=== PATIENT | female | born 1960 | race Caucasian/White ===

== ENCOUNTER 2021-05-12 10:11 | Observation (INO) | payer BC ==
--- NOTE | 2021-05-12 10:39 | EDM.PDOC ---
ED HPI GENERAL MEDICAL PROBLEM - General Stated Complaint: HERNIA Time Seen by Provider: 05/12/21 10:25 Source of Information: Reports: Patient History Limitations: Reports: No Limitations - History of Present Illness INITIAL COMMENTS - FREE TEXT/NARRATIVE: This 60 yo female patient reports to the ED from the [facility] due to right sided abdominal pain. The patient reports her abdominal pain started this morning and had continued until she presented to the ED. The patient does have a history of a ventral hernia repair. The patient reports she had similar symptoms over the past weekend. The patient reports she had eaten popcorn prior to her earlier episode and had eaten sunflower seeds yesterday. Onset: Today Duration: Constant, Improving Location: Reports: Abdomen (right sided) Quality: Reports: Ache, Sharp Severity: Moderate Improves with: Reports: None Worsens with: Reports: None Context: Reports: Other Associated Symptoms: Reports: No Other Symptoms Abdomen Pain Score (Numeric/FACES): 4 - Related Data Allergies Allergy/AdvReac Type Severity Reaction Status Date / Time No Known Allergies Allergy Verified 05/12/21 10:11 Home Meds: Home Meds Citalopram [Citalopram HBr] 20 mg PO DAILY 05/12/21 [History] Levothyroxine [Synthroid] 137 mcg PO ACBREAKFAST 05/12/21 [History] amLODIPine Besylate [Amlodipine Besylate] 5 mg PO DAILY 05/12/21 [History] buPROPion HCL [Wellbutrin Xl] 300 mg PO DAILY 05/12/21 [History] ED ROS GENERAL - Review of Systems Review Of Systems: Comprehensive ROS is negative, except as noted in HPI. ED EXAM, GI/ABD - Physical Exam Exam: See Below Exam Limited By: No Limitations General Appearance: Alert, WD/WN, No Apparent Distress Eyes: Bilateral: Normal Appearance, EOMI Ears: Normal External Exam, Normal Canal, Hearing Grossly Normal, Normal TMs Nose: Normal Inspection, Normal Mucosa, No Blood Throat/Mouth: Normal Inspection, Normal Lips, Normal Teeth, Normal Gums, Normal Oropharynx, Normal Voice, No Airway Compromise Head: Atraumatic, Normocephalic Cardiovascular: Normal Peripheral Pulses, Regular Rate, Rhythm, No Edema, No Gallop, No JVD, No Murmur, No Rub GI/Abdominal Exam: Soft, No Organomegaly, No Distention, No Abnormal Bruit, No Mass, Pelvis Stable, Tender (Right mid abdominal tenderness to palpation), Other (Hypoactive bowel sounds) (Female) Exam: Deferred Rectal (Female) Exam: Deferred Back Exam: Normal Inspection, Full Range of Motion, NT Extremities: Normal Inspection, Normal Range of Motion, Non-Tender, Normal Capillary Refill, No Pedal Edema Neurological: Alert, Oriented, CN II-XII Intact, Normal Cognition, Normal Gait, Normal Reflexes, No Motor/Sensory Deficits Psychiatric: Normal Affect, Normal Mood Skin Exam: Warm, Dry, Intact, Normal Color, No Rash Lymphatic: No Adenopathy Course - Vital Signs Last Recorded V/S: Last Vital Signs Temp 97.1 F 05/12/21 10:16 Pulse 79 05/12/21 10:16 Resp 20 05/12/21 10:16 BP 156/83 H 05/12/21 10:16 Pulse Ox 95 05/12/21 10:16 - Orders/Labs/Meds Orders: Active Orders 24 hr Category Date Time Status Admission Diagnosis [ADT] Urgent ADT 05/12/21 16:03 Ordered Admission Status [Patient Status] [ADT] Routine ADT 05/12/21 16:03 Ordered CORONAVIRUS COVID-19 NIRANJAN [MOLEC] Urgent Lab 05/12/21 16:08 Ordered CULTURE BLOOD [BC] Stat Lab 05/12/21 10:05 Ordered Labs: Laboratory Tests 05/12/21 05/12/21 05/12/21 Range/Units 10:20 10:20 10:20 WBC 7.0 (5.0-10.0) 10^3/uL RBC 5.09 (4.2-5.4) 10^6/uL Hgb 14.2 (12.0-16.0) g/dL Hct 44.6 (37.0-47.0) % MCV 87.6 (80-100) fL MCH 27.9 (27.0-34.0) pg MCHC 31.8 L (33.0-35.0) g/dL Plt Count 204 (150-450) 10^3/uL Neut % (Auto) 79.3 H (42.2-75.2) % Lymph % (Auto) 13.4 L (20.5-50.1) % [place] % (Auto) 6.6 (2-8) % Eos % (Auto) 0.4 L (1.0-3.0) % Baso % (Auto) 0.3 (0.0-1.0) % Sodium 140 (136-145) mmol/L Potassium 4.1 (3.5-5.1) mmol/L Chloride 101 (98-107) mmol/L Carbon Dioxide 29 (21-32) mmol/L Anion Gap 14.1 H (7-13) mEq/L BUN 13 (7-18) mg/dL Creatinine 0.76 (0.55-1.02) mg/dL Est Cr Clr Drug Dosing 67.97 mL/min Estimated GFR (MDRD) > 60 BUN/Creatinine Ratio 17.1 (No establ ref range) Glucose 105 H (70-99) mg/dL Lactic Acid 0.6 (0.4-2.0) mmol/L Calcium 9.0 (8.5-10.1) mg/dL Total Bilirubin 0.5 (0.2-1.0) mg/dL AST 18 (15-37) U/L ALT 25 (14-59) U/L Alkaline Phosphatase 108 (46-116) U/L Total Protein 7.4 (6.4-8.2) g/dL Albumin 3.6 (3.4-5.0) g/dL Globulin 3.8 Albumin/Globulin Ratio 0.9 Amylase 52 (25-115) U/L Lipase 39 L (73-393) U/L Urine Color (YELLOW) Urine Appearance (CLEAR) Urine pH (5.0-9.0) Ur Specific [place] (1.005-1.030) Urine Protein (NEGATIVE) Urine Glucose (UA) (NEGATIVE) Urine Ketones (NEGATIVE) Urine Occult Blood (NEGATIVE) Urine Nitrite (NEGATIVE) Urine Bilirubin (NEGATIVE) Urine Urobilinogen (0.2-1.0) mg/dL Ur Leukocyte Esterase (NEGATIVE) 05/12/21 Range/Units 11:44 WBC (5.0-10.0) 10^3/uL RBC (4.2-5.4) 10^6/uL Hgb (12.0-16.0) g/dL Hct (37.0-47.0) % MCV (80-100) fL MCH (27.0-34.0) pg MCHC (33.0-35.0) g/dL Plt Count (150-450) 10^3/uL Neut % (Auto) (42.2-75.2) % Lymph % (Auto) (20.5-50.1) % [place] % (Auto) (2-8) % Eos % (Auto) (1.0-3.0) % Baso % (Auto) (0.0-1.0) % Sodium (136-145) mmol/L Potassium (3.5-5.1) mmol/L Chloride (98-107) mmol/L Carbon Dioxide (21-32) mmol/L Anion Gap (7-13) mEq/L BUN (7-18) mg/dL Creatinine (0.55-1.02) mg/dL Est Cr Clr Drug Dosing mL/min Estimated GFR (MDRD) BUN/Creatinine Ratio (No establ ref range) Glucose (70-99) mg/dL Lactic Acid (0.4-2.0) mmol/L Calcium (8.5-10.1) mg/dL Total Bilirubin (0.2-1.0) mg/dL AST (15-37) U/L ALT (14-59) U/L Alkaline Phosphatase (46-116) U/L Total Protein (6.4-8.2) g/dL Albumin (3.4-5.0) g/dL Globulin Albumin/Globulin Ratio Amylase (25-115) U/L Lipase (73-393) U/L Urine Color Yellow (YELLOW) Urine Appearance Clear (CLEAR) Urine pH 6.5 (5.0-9.0) Ur Specific [place] 1.025 (1.005-1.030) Urine Protein Negative (NEGATIVE) Urine Glucose (UA) Negative (NEGATIVE) Urine Ketones 15 H (NEGATIVE) Urine Occult Blood Negative (NEGATIVE) Urine Nitrite Negative (NEGATIVE) Urine Bilirubin Negative (NEGATIVE) Urine Urobilinogen 0.2 (0.2-1.0) mg/dL Ur Leukocyte Esterase Negative (NEGATIVE) Meds: Medications Discontinued Medications Generic Name Dose Route Start Last Admin Trade Name Freq PRN Reason Stop Dose Admin Iopamidol 100 ml 05/12/21 11:13 Iopamidol 612 Mg/Ml 100 Ml Bottle IVPUSH 05/12/21 11:14 ONETIME ONE Ondansetron HCl 4 mg 05/12/21 12:25 05/12/21 12:30 Ondansetron 4 Mg/2 Ml Sdv IVPUSH 05/12/21 12:26 4 mg ONETIME ONE Administration - Re-Assessments/Exams Free Text/Narrative Re-Assessment/Exam: 05/12/21 11:17 The patient was advised of her lab results and was informed that we would get a CT of her abdomen/pelvis to look for other sources of her symptoms. The patient reports her pain is currently gone. 05/12/21 12:44 A call was placed to [facility] at 1230, [facility] advised that they would talk to surgery (Dr. Esteban), evaluate the bed situation and call us back with a decision. 05/12/21 16:13 After calling [facility], [facility], [facility], [facility], [facility] and [place]. The surgeon in [place] reviewed the case and believes the patient would benefit from a larger facility. Since there is no larger facility available, the surgeon advised to admit the patient to [place] and transfer (if needed) to a larger facility. Departure - Departure Time of Disposition: 16:25 Disposition: Refer to Observation Condition: Fair Clinical Impression: Incarcerated hernia - Discharge Information *PRESCRIPTION DRUG MONITORING PROGRAM REVIEWED*: Not Applicable *COPY OF PRESCRIPTION DRUG MONITORING REPORT IN PATIENT JAZMIN: Not Applicable Care Plan Goals: Discussed the patient's history, examination, lab and CT results with Dr. Michele. Dr. Michele accepted the patient for continued evaluation and management. The patient is on a transfer list at [facility] and [facility]. Sepsis Event Note (ED) - Focused Exam Vital Signs: Vital Signs Temp Pulse Resp BP Pulse Ox 05/12/21 10:16 97.1 F 79 20 156/83 H 95 - My Orders Last 24 Hours: My Active Orders 05/12/21 10:05 CULTURE BLOOD [BC] Stat 05/12/21 16:03 Admission Diagnosis [ADT] Urgent Admission Status [Patient Status] [ADT] Routine 05/12/21 16:08 CORONAVIRUS COVID-19 NIRANJAN [MOLEC] Urgent - Assessment/Plan Last 24 Hours: My Active Orders 05/12/21 10:05 CULTURE BLOOD [BC] Stat 05/12/21 16:03 Admission Diagnosis [ADT] Urgent Admission Status [Patient Status] [ADT] Routine 05/12/21 16:08 CORONAVIRUS COVID-19 NIRANJAN [MOLEC] Urgent
[2021-05-12 11:03] LABS: ANION GAP 14.1 mEq/L (7-13); CHLORIDE,CL 101 mmol/L (98-107); SODIUM,NA 140 mmol/L (136-145)
[2021-05-12] MEDS ORDERED: Iopamidol 612 MG/ML 100 ML Bottle IVPUSH ONE (11:13)
--- NOTE | 2021-05-12 11:56 | CT ---
EXAMINATION: Abdomen Pelvis w Cont SEX: Female AGE: 60 years CLINICAL HISTORY: 60-year-old 263 pound female with history of cholecystectomy, ventral hernia "repair", breast reduction surgery, and now right abdominal pain associated with eating "popcorn and sunflower seeds". No comparison exams immediately available at this institution. Scan technique: Volume acquisition of data from the abdomen and pelvis obtained without oral contrast but during the intravenous administration 100 cc nonionic Isovue contrast at 3 cc/s via injector while patient was lying supine on the Siemens multislice scanner [place], [place]. All data archived in the PACS system for storage, reformatting axial/sagittal/coronal planes and study. Interpretation: Abnormal. 1. Large (8.5 cm) midline defect epigastrium with huge hernia (several herniated loops of small bowel extending into the subcutaneous tissues). 2. Note: Another separate smaller (2 cm) midline defect with *incarcerated "knuckle" of small bowel identified on sagittal image #44, axial image #45, and coronal image #13. which may be responsible for patient's symptomatology. 3. No current signs of mechanical small bowel obstruction. 4. No abdominal or pelvic soft tissue mass lesion, mesenteric or retroperitoneal lymphadenopathy, diverticula, inflammatory "dirty" peritoneal fat, ascites or free intraperitoneal air. 5. Small hiatus hernia (surgical clips in the lower mediastinum at the GE junction) and apparent gastric bypass surgery. 6. Cholecystectomy (surgical clips RUQ). Liver, spleen, pancreas adrenal glands and kidneys anatomically correct. Normal midline uterus. Symmetrically distended unenhanced urinary bladder unremarkable. 7. Normal caliber aortoiliac vessels. No aneurysms. Hypertrophic spondylosis lumbar spine. 8. Lung bases clear. Normal cardiac silhouette. No pericardial or pleural effusions. CONCLUSION: Evidence of multiple abdominal surgeries. Ventral wall hernias (x2) probably significant clinically. No sign of abdominal malignancy, mechanical bowel obstruction or acute peritonitis.
[2021-05-12] MEDS ORDERED: Ondansetron 4 MG/2 ML SDV IVPUSH ONE (12:25)
[2021-05-12] MEDS ORDERED: Acetaminophen 325 MG Tab PO PRN (16:51)
[2021-05-12] MEDS ORDERED: Ondansetron 4 MG Tab.DIS PO PRN (16:51)
--- NOTE | 2021-05-12 17:04 | PCM.HP ---
H&P History of Present Illness - General Date of Service: 05/12/21 Admit Problem/Dx: Admission Diagnosis/Problem Admission Diagnosis/Problem Incarcerated hernia - History of Present Illness Initial Comments - Free Text/Narative: Opal is a 60-year-old woman who presented to the ER today with 24-hour history of worsening abdominal discomfort. She states that she has had intermittent pain, but also waves of severe nausea, and a "fullness". She has a significant past history of gastric bypass surgery, and developed a ventral hernia which also needed surgical repair. She also reports that she has had a history of cholecystectomy. Upon her initial presentation to the ED this morning, laboratory work was normal, however due to the fact that she has this existing surgical history, ER provider ordered a CT scan of the abdomen and pelvis. They did find a small pocket of small bowel that appears to be incarcerated, but is not showing any signs of stranding or necrosis. ED provider attempted to find surgical placement for her, but because of the COVID-19 pandemic, there are no available beds in the surrounding area. He was able to get tentative acceptance at [facility] in [place], [place]. They do not currently have a bed, but she is placed on high priority on their waiting list. Decision was made to admit her here for observation, pain control, and IV fluid maintenance pending transfer for surgery in [place]. As I approach, she states that she is pain-free, actually seems to be more worried about how her mother will react to her having surgery. She relates to me that her father 5 months ago, and that her brother yesterday after a long extended illness. Abdomen Pain Score (Numeric/FACES): 4 - Related Data Allergies/Adverse Reactions: Allergies Allergy/AdvReac Type Severity Reaction Status Date / Time No Known Allergies Allergy Verified 05/12/21 16:52 Home Medications: Home Meds Citalopram [Citalopram HBr] 20 mg PO DAILY 05/12/21 [History] Levothyroxine [Synthroid] 137 mcg PO ACBREAKFAST 05/12/21 [History] amLODIPine Besylate [Amlodipine Besylate] 5 mg PO DAILY 05/12/21 [History] buPROPion HCL [Wellbutrin Xl] 300 mg PO DAILY 05/12/21 [History] Past Medical History Cardiovascular History: Reports: Hypertension Gastrointestinal History: Reports: Other (See Below) (Cholecystectomy, gastric bypass surgery, repair of ventral hernia) Psychiatric History: Reports: Depression (Has a history of recurrent major depression, currently on 2 medications for that. Her father 5 months ago, brother yesterday after a long illness. She is dealing with significant grief because of this, exacerbating her pre-existing depression) Endocrine/Metabolic History: Reports: Hypothyroidism - Past Surgical History GI Surgical History: Reports: Hernia, Abdominal, Hernia Repair/Other Social & Family History - Family History Family Medical History: No Pertinent Family History - Tobacco Use Tobacco Use Status *Q: Unknown Ever Used Tobacco - Caffeine Use Caffeine Use: Reports: Coffee - Recreational Drug Use Recreational Drug Use: No H&P Review of Systems - Review of Systems: Review Of Systems: See Below General: Reports: Other (reports 40 pound intentional weight loss over past several months). Denies: Fever, Chills, Night Sweats HEENT: Denies: Headaches, Hearing Changes, Vertigo, Visual Changes Pulmonary: Denies: Shortness of Breath, Cough Cardiovascular: Denies: Chest Pain, Palpitations Gastrointestinal: Reports: Other (see HPI) Genitourinary: Denies: Dysuria, Hematuria Musculoskeletal: Denies: Joint Pain, Muscle Pain Skin: Denies: Bruising, Rash, Lesions Psychiatric: Reports: Other (No increased depression or anxiety symptoms, grief from loss of father and brother) Neurological: Denies: Confusion, Syncope, Trouble Speaking, Difficulty Walking Hematologic/Lymphatic: Denies: Easy Bleeding, Easy Bruising Exam - Exam Exam: See Below - Vital Signs Vital Signs: Last Vital Signs Temp 97.1 F 05/12/21 10:16 Pulse 79 05/12/21 10:16 Resp 20 05/12/21 10:16 BP 156/83 H 05/12/21 10:16 Pulse Ox 95 05/12/21 10:16 Weight: 258 lb - Exam Physical Exam Comments:: General: Maksim is a 60-year-old woman in no acute distress Oropharynx is clear, mucous membranes are moist Neck: Supple, no lymphadenopathy Heart: Regular rate and rhythm, no murmurs Lungs: Clear to auscultation throughout Abdomen: Soft, nontender to palpation, noticeable ventral defect is noted. It is difficult to tell whether this is a hernia or diastases. Normal bowel sounds Extremities: she moves all of her extremities well Neurological: Cranial nerves II through XII grossly intact - Patient Data Lab Results Last 24 hrs: Laboratory Results - last 24 hr 05/12/21 05/12/21 05/12/21 Range/Units 10:20 10:20 10:20 WBC 7.0 (5.0-10.0) 10^3/uL RBC 5.09 (4.2-5.4) 10^6/uL Hgb 14.2 (12.0-16.0) g/dL Hct 44.6 (37.0-47.0) % MCV 87.6 (80-100) fL MCH 27.9 (27.0-34.0) pg MCHC 31.8 L (33.0-35.0) g/dL Plt Count 204 (150-450) 10^3/uL Neut % (Auto) 79.3 H (42.2-75.2) % Lymph % (Auto) 13.4 L (20.5-50.1) % [place] % (Auto) 6.6 (2-8) % Eos % (Auto) 0.4 L (1.0-3.0) % Baso % (Auto) 0.3 (0.0-1.0) % Sodium 140 (136-145) mmol/L Potassium 4.1 (3.5-5.1) mmol/L Chloride 101 (98-107) mmol/L Carbon Dioxide 29 (21-32) mmol/L Anion Gap 14.1 H (7-13) mEq/L BUN 13 (7-18) mg/dL Creatinine 0.76 (0.55-1.02) mg/dL Est Cr Clr Drug Dosing 67.97 mL/min Estimated GFR (MDRD) > 60 BUN/Creatinine Ratio 17.1 (No establ ref range) Glucose 105 H (70-99) mg/dL Lactic Acid 0.6 (0.4-2.0) mmol/L Calcium 9.0 (8.5-10.1) mg/dL Total Bilirubin 0.5 (0.2-1.0) mg/dL AST 18 (15-37) U/L ALT 25 (14-59) U/L Alkaline Phosphatase 108 (46-116) U/L Total Protein 7.4 (6.4-8.2) g/dL Albumin 3.6 (3.4-5.0) g/dL Globulin 3.8 Albumin/Globulin Ratio 0.9 Amylase 52 (25-115) U/L Lipase 39 L (73-393) U/L Urine Color (YELLOW) Urine Appearance (CLEAR) Urine pH (5.0-9.0) Ur Specific [place] (1.005-1.030) Urine Protein (NEGATIVE) Urine Glucose (UA) (NEGATIVE) Urine Ketones (NEGATIVE) Urine Occult Blood (NEGATIVE) Urine Nitrite (NEGATIVE) Urine Bilirubin (NEGATIVE) Urine Urobilinogen (0.2-1.0) mg/dL Ur Leukocyte Esterase (NEGATIVE) SARS CoV-2 RNA Rapid NIRANJAN (NEGATIVE) 05/12/21 05/12/21 Range/Units 11:44 16:08 WBC (5.0-10.0) 10^3/uL RBC (4.2-5.4) 10^6/uL Hgb (12.0-16.0) g/dL Hct (37.0-47.0) % MCV (80-100) fL MCH (27.0-34.0) pg MCHC (33.0-35.0) g/dL Plt Count (150-450) 10^3/uL Neut % (Auto) (42.2-75.2) % Lymph % (Auto) (20.5-50.1) % [place] % (Auto) (2-8) % Eos % (Auto) (1.0-3.0) % Baso % (Auto) (0.0-1.0) % Sodium (136-145) mmol/L Potassium (3.5-5.1) mmol/L Chloride (98-107) mmol/L Carbon Dioxide (21-32) mmol/L Anion Gap (7-13) mEq/L BUN (7-18) mg/dL Creatinine (0.55-1.02) mg/dL Est Cr Clr Drug Dosing mL/min Estimated GFR (MDRD) BUN/Creatinine Ratio (No establ ref range) Glucose (70-99) mg/dL Lactic Acid (0.4-2.0) mmol/L Calcium (8.5-10.1) mg/dL Total Bilirubin (0.2-1.0) mg/dL AST (15-37) U/L ALT (14-59) U/L Alkaline Phosphatase (46-116) U/L Total Protein (6.4-8.2) g/dL Albumin (3.4-5.0) g/dL Globulin Albumin/Globulin Ratio Amylase (25-115) U/L Lipase (73-393) U/L Urine Color Yellow (YELLOW) Urine Appearance Clear (CLEAR) Urine pH 6.5 (5.0-9.0) Ur Specific [place] 1.025 (1.005-1.030) Urine Protein Negative (NEGATIVE) Urine Glucose (UA) Negative (NEGATIVE) Urine Ketones 15 H (NEGATIVE) Urine Occult Blood Negative (NEGATIVE) Urine Nitrite Negative (NEGATIVE) Urine Bilirubin Negative (NEGATIVE) Urine Urobilinogen 0.2 (0.2-1.0) mg/dL Ur Leukocyte Esterase Negative (NEGATIVE) SARS CoV-2 RNA Rapid NIRANJAN Negative (NEGATIVE) Result Diagrams: 05/12/21 10:20 05/12/21 10:20 *Q Meaningful Use (ADM) - VTE Risk Assess *Q Each Risk Factor Represents 2 Points: Age 60 - 74 Years Total Score 2 Point Risk Factors: 2 - Problem List (1) Hypothyroidism SNOMED Code(s): 23427660 ICD Code: E03.9 - HYPOTHYROIDISM, UNSPECIFIED Status: Chronic Current Visit: Yes Qualifiers: Hypothyroidism type: unspecified Qualified Code(s): E03.9 - Hypothyroidism, unspecified (2) Major depressive disorder, recurrent SNOMED Code(s): 80417356 ICD Code: F33.9 - MAJOR DEPRESSIVE DISORDER, RECURRENT, UNSPECIFIED Status: Chronic Current Visit: Yes Qualifiers: Active/Remission status: currently active Psychotic features: without psychotic features (3) Incarcerated hernia SNOMED Code(s): 96591014 ICD Code: K46.0 - UNSP ABDOMINAL HERNIA WITH OBSTRUCTION, WITHOUT GANGRENE Status: Acute Priority: High Current Visit: Yes Problem List Initiated/Reviewed/Updated: Yes Orders Last 24hrs: Active Orders 24 hr Category Date Time Status Admission Diagnosis [ADT] Urgent ADT 05/12/21 16:03 Ordered Admission Status [Patient Status] [ADT] Routine ADT 05/12/21 16:03 Active Antiembolic Devices [RC] PER UNIT ROUTINE Care 05/12/21 16:54 Ordered Oxygen Therapy [RC] PRN Care 05/12/21 16:51 Ordered Up ad Dianne [RC] ASDIRECTED Care 05/12/21 16:51 Ordered VTE/DVT Education [RC] PER UNIT ROUTINE Care 05/12/21 16:51 Ordered Vital Signs [RC] Q4H Care 05/12/21 16:51 Ordered Nothing per Oral Now Diet [DIET] Diet 05/12/21 Dinner Ordered CBC WITH AUTO DIFF [HEME] AM Lab 05/13/21 05:11 Ordered COMPREHENSIVE METABOLIC PN,CMP [CHEM] AM Lab 05/13/21 05:11 Ordered CULTURE BLOOD [BC] Stat Lab 05/12/21 10:20 Received LACTIC ACID [CHEM] AM Lab 05/13/21 05:11 Ordered MAGNESIUM [CHEM] AM Lab 05/13/21 05:11 Ordered Acetaminophen [TylenoL] Med 05/12/21 16:51 Ordered 650 mg PO Q4H PRN Citalopram [Celexa] Med 05/13/21 09:00 Ordered 20 mg PO DAILY Lactated Ringers @ 125 MLS/HR(1000ml) Med 05/12/21 17:00 Ordered Lactated Ringers [Ringers, Lactated] 1,000 ml IV ASDIRECTED Levothyroxine [Synthroid] Med 05/13/21 06:00 Ordered 137 mcg PO ACBREAKFAST Ondansetron [Zofran ODT] Med 05/12/21 16:51 Ordered 4 mg PO Q6H PRN amLODIPine [Norvasc] Med 05/13/21 09:00 Ordered 5 mg PO DAILY buPROPion HCL [Wellbutrin Xl] Med 05/13/21 09:00 Ordered 300 mg PO DAILY Sequential Compression Device [OM.PC] Per Unit Routine Oth 05/12/21 16:52 Ordered Resuscitation Status Routine Resus Stat 05/12/21 16:51 Ordered Medication Orders Acetaminophen (Acetaminophen 325 Mg Tab) 650 mg PO Q4H PRN PRN Reason: Pain (Mild 1-3)/fever Amlodipine Besylate (Amlodipine 5 Mg Tab) 5 mg PO DAILY TOMY Citalopram Hydrobromide (Citalopram 20 Mg Tab) 20 mg PO DAILY TOMY Lactated Ringer's (Ringers, Lactated) 1,000 mls @ 125 mls/hr IV ASDIRECTED TOMY Levothyroxine Sodium (Levothyroxine 100 Mcg Tab) 137 mcg PO ACBREAKFAST TOMY Non-Formulary Medication (Bupropion Hcl [Wellbutrin Xl]) 300 mg PO DAILY TOMY Ondansetron HCl (Ondansetron 4 Mg Tab.Dis) 4 mg PO Q6H PRN PRN Reason: nausea, able to take PO Assessment/Plan Comment:: Assessment: 1. 60-year-old woman with incarcerated hernia of the anterior abdomen, with no laboratory or clinical signs of necrosis or infection 2. Major depressive disorder with recurrent episode 3. Hypothyroidism 4. Obesity Plan: 1. She has been tentatively accepted by [facility] in [place], however, they do not have an available bed at this time. Because of the COVID-19 pandemic, they have been stressed for beds. ER provider attempted to find placement for her at 7 other surrounding facilities with no success. She will be admitted for observation here, until a bed opens up where she can be transferred to [place] for anticipated surgery. 2. We will keep her n.p.o., as we do not know when they will have availability to get her transferred for surgery 3. Due to n.p.o. status, lactated Ringer's, 125 mL/hr IV maintenance 4. We will keep a careful watch on her symptoms, may need to repeat her lab work later this evening if she has any worsening of her symptoms or starts ru nning a fever 5. Due to possible impending surgery, will not start pharmacological VTE prophylaxis, but will place her on mechanical SCDs. 6. We will repeat CBC, CMP and lactate in the a.m. if she has not yet been able to be transferred. We will also give her her morning pills again if she has not yet been transferred.
[2021-05-12] MEDS ORDERED: Sodium Chloride 0.9% 10 ML Syringe FLUSH PRN (17:30)
[2021-05-12] MEDS: Lactated Ringers 1,000 ML IV SCH (18:27)
[2021-05-13] MEDS: Lactated Ringers 1,000 ML IV SCH ×2 (02:07→10:00)
[2021-05-13] MEDS ORDERED: Levothyroxine 112 MCG Tab PO SCH (06:00)
[2021-05-13] MEDS ORDERED: Levothyroxine 25 MCG Tab PO SCH (06:00)
[2021-05-13] MEDS ORDERED: LEVOTHYROXINE 137 MCG PO SCH (06:00)
[2021-05-13] MEDS ORDERED: Levothyroxine 100 MCG Tab PO SCH (06:00)
[2021-05-13 06:55] LABS: ANION GAP 10.6 mEq/L (7-13); CHLORIDE,CL 104 mmol/L (98-107); SODIUM,NA 142 mmol/L (136-145)
[2021-05-13] MEDS: Citalopram 20 MG Tab PO SCH ×2 (08:57→10:03)
[2021-05-13] MEDS ORDERED: buPROPion 150 MG Tab.ER PO SCH (09:00)
[2021-05-13] MEDS ORDERED: amLODIPine 5 MG Tab PO SCH (09:00)
[2021-05-13] MEDS ORDERED: amLODIPine 5 MG Tab **PT OWN MED PO SCH (10:09)
[2021-05-13] MEDS ORDERED: CITALOPRAM 20 MG PO SCH (18:00)
[2021-05-14] MEDS ORDERED: BUPROPION 300 MG PO SCH (09:00)
--- NOTE | 2021-05-16 14:02 | PCM.DCSUM1 ---
Discharge Summary - Hospital Course Free Text/Narrative:: Opal was admitted yesterday for observation while awaiting transfer to [facility] in [place] for emergent surgery. She was found yesterday on CT in the ED to have a small incarcerated portion of small bowel. She had had previous abdominal surgeries, which had made her vulnerable to this complication. She did well overnight, no fevers, no other clinical signs of infection or complication with the entrapped bowel. Fortunately, [place] was able to get an available bed open, so she was transferred via basic life support to their facility. She left in good condition - Discharge Data Discharge Date: 05/13/21 (transfer to [facility]) Discharge Disposition: DC/Tfer to Acute Hospital 02 Condition: Good - Referral to Home Health Primary Care Physician: PCP None - Discharge Diagnosis/Problem(s) (1) Hypothyroidism SNOMED Code(s): 05390653 ICD Code: E03.9 - HYPOTHYROIDISM, UNSPECIFIED Status: Chronic Qualifiers: Hypothyroidism type: unspecified Qualified Code(s): E03.9 - Hypothyroidism, unspecified (2) Major depressive disorder, recurrent SNOMED Code(s): 38611939 ICD Code: F33.9 - MAJOR DEPRESSIVE DISORDER, RECURRENT, UNSPECIFIED Status: Chronic Qualifiers: Active/Remission status: currently active Psychotic features: without psychotic features (3) Incarcerated hernia SNOMED Code(s): 38215727 ICD Code: K46.0 - UNSP ABDOMINAL HERNIA WITH OBSTRUCTION, WITHOUT GANGRENE Status: Acute Priority: High - Discharge Plan *PRESCRIPTION DRUG MONITORING PROGRAM REVIEWED*: Not Applicable *COPY OF PRESCRIPTION DRUG MONITORING REPORT IN PATIENT JAZMIN: Not Applicable Home Medications: Home Meds Citalopram [Citalopram HBr] 20 mg PO DAILY 05/12/21 [History] Levothyroxine [Synthroid] 137 mcg PO ACBREAKFAST 05/12/21 [History] amLODIPine Besylate [Amlodipine Besylate] 5 mg PO DAILY 05/12/21 [History] buPROPion HCL [Wellbutrin Xl] 300 mg PO DAILY 05/12/21 [History] - Discharge Summary/Plan Comment DC Time >30 min.: No (patient transferred, not discharged) Total # of Minutes for Discharge Time: 5 Discharge Summary/Plan Comment: 1. She is transferred to [facility] in [place] via basic life support ambulance, in anticipation of surgery there to correct her incarcerated bowel. - General Info Date of Service: 05/13/21 Admission Dx/Problem (Free Text: Admission Diagnosis/Problem Admission Diagnosis/Problem Incarcerated hernia Subjective Update: See above summary - Patient Data Vitals - Most Recent: Last Vital Signs Temp 97.0 F 05/13/21 12:00 Pulse 71 05/13/21 12:00 Resp 18 05/13/21 12:00 BP 149/64 H 05/13/21 12:00 Pulse Ox 94 L 05/13/21 12:00 Weight - Most Recent: 258 lb KISHOR Results - Last 24 hrs: Microbiology 05/12/21 10:20 Aerobic Blood Culture - Final Blood - Venous - Iv Start Staph Hominis Ss Hominis Anaerobic Blood Culture - Preliminary NO GROWTH AFTER 4 DAYS Med Orders - Current: Current Medications Discontinued Medications Acetaminophen (Acetaminophen 325 Mg Tab) 650 mg PO Q4H PRN PRN Reason: Pain (Mild 1-3)/fever Amlodipine Besylate (Amlodipine 5 Mg Tab) 5 mg PO DAILY [facility] Last Admin: 05/13/21 08:57 Dose: 5 mg Documented by: Amlodipine Besylate (Amlodipine 5 Mg Tab Pt Own Med) 5 mg PO DAILY [facility] Bupropion HCl (Bupropion 150 Mg Tab.Er) 300 mg PO DAILY [facility] Last Admin: 05/13/21 08:57 Dose: 300 mg Documented by: Citalopram Hydrobromide (Citalopram 20 Mg Tab) 20 mg PO DAILY [facility] Last Admin: 05/13/21 10:03 Dose: Not Given Documented by: Citalopram Hydrobromide (Citalopram 20 Mg Tab Pt Own Med) 20 mg PO DAILY@1800 [facility] Lactated Ringer's (Ringers, Lactated) 1,000 mls @ 125 mls/hr IV ASDIRECTED [facility] Last Admin: 05/13/21 10:00 Dose: 125 mls/hr Documented by: Iopamidol (Iopamidol 612 Mg/Ml 100 Ml Bottle) 100 ml IVPUSH ONETIME ONE Stop: 05/12/21 11:14 Last Admin: 05/12/21 18:18 Dose: Not Given Documented by: Levothyroxine Sodium (Levothyroxine 100 Mcg Tab) 137 mcg PO ACBREAKFAST [facility] Levothyroxine Sodium (Levothyroxine 112 Mcg Tab) 112 mcg PO ACBREAKFAST [facility]OM[facility] Levothyroxine 137mcg (Pt Own) 1 each PO ACBREAKFAST [facility]OMY Last Admin: 05/13/21 05:58 Dose: 1 each Documented by: Ondansetron HCl (Ondansetron 4 Mg/2 Ml Sdv) 4 mg IVPUSH ONETIME ONE Stop: 05/12/21 12:26 Last Admin: 05/12/21 12:30 Dose: 4 mg Documented by: Ondansetron HCl (Ondansetron 4 Mg Tab.Dis) 4 mg PO Q6H PRN PRN Reason: nausea, able to take PO Bupropion 300 Mg Tab .Er (Xl) Pt Own Med 0 each PO DAILY [facility]OM[facility] Sodium Chloride (Sodium Chloride 0.9% 10 Ml Syringe) 10 ml FLUSH ASDIRECTED PRN PRN Reason: Keep Vein Open - Exam Physical Findings Comments:: General: Opal is a 60-year-old woman in no acute distress Oropharynx is clear, mucous membranes are moist Heart: Regular rate and rhythm, no murmurs Lungs: Clear to auscultation throughout Abdomen: Soft, nontender to palpation, normal bowel sounds heard throughout, no organomegaly is detected+
== END 2021-05-13 14:45 ==
LOC: DL.ED 10:11 → DL.MS 16:03
PROVIDERS: ADMIT Family Medicine; ATTEND Family Medicine
DX: K46.0 Unspecified abdominal hernia with obstruction, without gangrene (principal); I10 Essential (primary) hypertension; E03.9 Hypothyroidism, unspecified; F32.9 Major depressive disorder, single episode, unspecified; E66.9 Obesity, unspecified; Z90.49 Acquired absence of other specified parts of digestive tract; Z79.899 Other long term (current) drug therapy; Z20.822 Contact with and (suspected) exposure to COVID-19
CPT/HCPCS: 36415; 74177; 80053; 81003; 82150; 83605; 83690; 83735; 85025; 87040; 87186; 96374; 99285-25; A9270-GY; G0378; J2405; J7120; U0002

== ENCOUNTER 2022-01-22 09:43 | Inpatient (IN) | payer BC ==
[2022-01-22] MEDS ORDERED: Ondansetron 4 MG/2 ML SDV IVPUSH PRN (13:34)
[2022-01-22] MEDS ORDERED: Zolpidem 5 MG Tab PO PRN (13:34)
[2022-01-22] MEDS ORDERED: HYDROmorphone 0.5 MG/0.5 ML Syringe IVPUSH PRN ×2 (13:34→13:52)
[2022-01-22] MEDS ORDERED: Magnesium Hydroxide 400 MG/5 ML Susp 30 ML Cup PO PRN ×2 (13:34→13:52)
[2022-01-22] MEDS ORDERED: Ketorolac 30 MG/ML SDV IVPUSH PRN (13:34)
[2022-01-22] MEDS ORDERED: Bisacodyl 5 MG Tab PO PRN ×2 (13:34→13:52)
[2022-01-22] MEDS ORDERED: Polyethylene Glycol 3350 Powder 17 GM Packet PO PRN ×2 (13:34→13:52)
[2022-01-22] MEDS ORDERED: Ondansetron 4 MG Tab.DIS PO PRN (13:34)
[2022-01-22] MEDS ORDERED: Acetaminophen/HYDROcodone 325-10 MG Tab PO PRN ×2 (13:34→13:52)
[2022-01-22] MEDS ORDERED: Docusate Sodium 100 MG Cap PO PRN ×2 (13:34→13:52)
[2022-01-22] MEDS ORDERED: Albuterol/Ipratropium 3.0-0.5 MG/3 ML Neb Soln NEB PRN ×2 (13:34→13:52)
[2022-01-22] MEDS ORDERED: oxyCODONE 5 MG Tab PO PRN (13:47)
[2022-01-22] MEDS ORDERED: Sodium Chloride 0.9% 10 ML Syringe FLUSH PRN (13:52)
[2022-01-22] MEDS ORDERED: guaiFENesin/Dextromethorphan 100-10 MG/5 ML Soln 5 ML Cup PO PRN (13:52)
[2022-01-22] MEDS ORDERED: hydrALAZINE 20 MG/ML SDV IVPUSH PRN (13:52)
[2022-01-22] MEDS ORDERED: Promethazine 25 MG/ML SDV IM PRN (13:52)
[2022-01-22] MEDS ORDERED: Metoprolol Tartrate 5 MG/5 ML SDV IVPUSH PRN (13:52)
[2022-01-22] MEDS ORDERED: Metoclopramide 10 MG/2 ML SDV IVPUSH PRN (13:52)
[2022-01-22] MEDS ORDERED: Acetaminophen 325 MG Tab PO PRN (13:52)
[2022-01-22] MEDS ORDERED: Pantoprazole 40 MG Tab.CR PO SCH (16:00)
[2022-01-22] MEDS: Sucralfate Suspension 1 GM/10 ML Cup PO SCH ×2 (16:44→20:45)
[2022-01-22] MEDS: Pantoprazole 40 MG Tab.CR PO SCH (16:44)
[2022-01-22] MEDS ORDERED: Meropenem 1 GM in Sodium Chloride 0.9% 100 ML IV SCH (17:00)
[2022-01-22] MEDS ORDERED: Sucralfate Suspension 1 GM/10 ML Cup PO SCH (17:30)
[2022-01-22] MEDS: amLODIPine 5 MG Tab PO SCH (20:44)
[2022-01-22] MEDS: Saccharomyces Boulardii (Probiotic) 250 MG Cap PO SCH (20:44)
[2022-01-22] MEDS: Citalopram 20 MG Tab PO SCH (20:44)
[2022-01-22] MEDS ORDERED: amLODIPine 5 MG Tab PO SCH (21:00)
[2022-01-22] MEDS ORDERED: Saccharomyces Boulardii (Probiotic) 250 MG Cap PO SCH (21:00)
[2022-01-22] MEDS ORDERED: Sodium Chloride 0.9% 1,000 ML IV ONE (21:00)
[2022-01-22] MEDS: Meropenem 1 GM in Sodium Chloride 0.9% 100 ML IV SCH (22:37)
[2022-01-22] MEDS: Zolpidem 5 MG Tab PO PRN (23:18)
[2022-01-23] MEDS: Pantoprazole 40 MG Tab.CR PO SCH ×2 (05:11→16:40)
[2022-01-23] MEDS: Levothyroxine 112 MCG Tab PO SCH (05:11)
[2022-01-23] MEDS: Levothyroxine 25 MCG Tab PO SCH (05:12)
[2022-01-23] MEDS: Meropenem 1 GM in Sodium Chloride 0.9% 100 ML IV SCH ×3 (05:33→23:35)
[2022-01-23] MEDS ORDERED: Levothyroxine 100 MCG Tab PO SCH (06:00)
[2022-01-23] MEDS: Sucralfate Suspension 1 GM/10 ML Cup PO SCH ×4 (06:13→22:04)
[2022-01-23] MEDS ORDERED: Non-Formulary Medication 1 Each (Bupropion Hcl [Wellbutrin Xl] 300 MG Tab.Er.24h) PO SCH (09:00)
[2022-01-23] MEDS: Saccharomyces Boulardii (Probiotic) 250 MG Cap PO SCH ×2 (09:16→22:03)
[2022-01-23] MEDS: buPROPion 150 MG Tab.ER PO SCH (09:17)
[2022-01-23] MEDS: Sodium Chloride 0.9% 1,000 ML IV SCH (19:36)
[2022-01-23] MEDS ORDERED: Melatonin 3 MG Tab PO PRN (20:00)
[2022-01-23] MEDS ORDERED: Sodium Chloride 0.9% 1,000 ML IV SCH (21:00)
[2022-01-23] MEDS: Citalopram 20 MG Tab PO SCH (22:03)
[2022-01-23] MEDS: amLODIPine 5 MG Tab PO SCH (22:03)
[2022-01-23] MEDS: Zolpidem 5 MG Tab PO PRN (22:42)
[2022-01-23] MEDS ORDERED: Lidocaine 1% 30 ML SDV ONE (23:16)
[2022-01-23] MEDS ORDERED: Lidocaine 1% 30 ML SDV INJECT ONE (23:21)
[2022-01-24] MEDS: Meropenem 1 GM in Sodium Chloride 0.9% 100 ML IV SCH ×3 (05:59→22:04)
[2022-01-24] MEDS: Levothyroxine 112 MCG Tab PO SCH (06:03)
[2022-01-24] MEDS: Pantoprazole 40 MG Tab.CR PO SCH ×2 (06:03→16:29)
[2022-01-24] MEDS: Sucralfate Suspension 1 GM/10 ML Cup PO SCH ×4 (06:04→21:53)
[2022-01-24] MEDS: Levothyroxine 25 MCG Tab PO SCH (06:04)
[2022-01-24] MEDS: buPROPion 150 MG Tab.ER PO SCH (08:51)
[2022-01-24] MEDS: Saccharomyces Boulardii (Probiotic) 250 MG Cap PO SCH ×2 (08:51→21:53)
[2022-01-24] MEDS: amLODIPine 5 MG Tab PO SCH (21:52)
[2022-01-24] MEDS: Zolpidem 5 MG Tab PO PRN (21:53)
[2022-01-24] MEDS: Citalopram 20 MG Tab PO SCH (21:53)
[2022-01-24] MEDS: Sodium Chloride 0.9% 1,000 ML IV SCH (21:59)
[2022-01-25] MEDS: Acetaminophen 325 MG Tab PO PRN ×2 (02:10→20:57)
[2022-01-25] MEDS: Levothyroxine 112 MCG Tab PO SCH (05:13)
[2022-01-25] MEDS: Pantoprazole 40 MG Tab.CR PO SCH ×2 (05:13→16:40)
[2022-01-25] MEDS: Levothyroxine 25 MCG Tab PO SCH (05:13)
[2022-01-25] MEDS: Meropenem 1 GM in Sodium Chloride 0.9% 100 ML IV SCH ×3 (05:21→21:14)
[2022-01-25 06:15] LABS: ANION GAP 11.5 mEq/L (7-13)
[2022-01-25] MEDS: Sucralfate Suspension 1 GM/10 ML Cup PO SCH ×4 (06:19→21:01)
[2022-01-25] MEDS ORDERED: Ciprofloxacin 500 MG Tab PO SCH (09:00)
[2022-01-25] MEDS: buPROPion 150 MG Tab.ER PO SCH (09:16)
[2022-01-25] MEDS: Saccharomyces Boulardii (Probiotic) 250 MG Cap PO SCH ×2 (09:17→20:57)
[2022-01-25] MEDS: Citalopram 20 MG Tab PO SCH (20:58)
[2022-01-25] MEDS: amLODIPine 5 MG Tab PO SCH (21:01)
[2022-01-26] MEDS: Acetaminophen 325 MG Tab PO PRN (01:01)
[2022-01-26] MEDS: Levothyroxine 25 MCG Tab PO SCH (06:08)
[2022-01-26] MEDS: Sucralfate Suspension 1 GM/10 ML Cup PO SCH (06:09)
[2022-01-26] MEDS: Pantoprazole 40 MG Tab.CR PO SCH (06:09)
[2022-01-26] MEDS: Levothyroxine 112 MCG Tab PO SCH (06:09)
[2022-01-26] MEDS: buPROPion 150 MG Tab.ER PO SCH (08:11)
[2022-01-26] MEDS: Saccharomyces Boulardii (Probiotic) 250 MG Cap PO SCH (08:11)
[2022-01-26] MEDS ORDERED: Ciprofloxacin 500 MG Tab PO SCH (09:00)
[2022-01-26] MEDS ORDERED: Levofloxacin 500 MG Tab PO SCH (12:00)
[2022-01-28] MEDS ORDERED: Ergocalciferol (Vitamin D2) 1.25 MG Cap PO SCH (21:00)
== END 2022-01-26 09:40 | disposition home or self-care (01) | DRG 137 ==
LOC: DL.MS 15:46
PROVIDERS: ADMIT Internal Medicine; ATTEND Hospitalist
DX: J69.0 Pneumonitis due to inhalation of food and vomit (principal); T81.30XD Disruption of wound, unspecified, subsequent encounter; Z68.42 Body mass index [BMI] 45.0-49.9, adult; I10 Essential (primary) hypertension; E03.9 Hypothyroidism, unspecified; K44.9 Diaphragmatic hernia without obstruction or gangrene; F32.A Depression, unspecified; D50.9 Iron deficiency anemia, unspecified; E66.01 Morbid (severe) obesity due to excess calories; G47.00 Insomnia, unspecified; Z96.652 Presence of left artificial knee joint; E55.9 Vitamin D deficiency, unspecified; E88.09 Other disorders of plasma-protein metabolism, not elsewhere classified; Z98.890 Other specified postprocedural states; Z98.84 Bariatric surgery status; Z79.890 Hormone replacement therapy; Z79.899 Other long term (current) drug therapy
CPT/HCPCS: 36415; 80048; 83735; 85025; 86140; 97110-GO; 97165-GO; A9270-GY; J2185; J7030